=== PATIENT | female | born 1985 | race American Indian/Alaskan Native ===

== ENCOUNTER 2018-12-29 20:40 | Emergency (ER) | payer OTHER ==
[2018-12-29 20:53] VITALS: BP 122/89
[2018-12-29] MEDS ORDERED: KETOROLAC 30 MG/1 ML INJ IM ONE (21:39)
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
== END 2018-12-29 23:18 | disposition home or self-care (01) ==
LOC: ED 20:40
DX: M54.2 Cervicalgia (principal); M54.6 Pain in thoracic spine; V49.49XA Driver injured in collision with other motor vehicles in traffic accident, initial encounter; X58.XXXA Exposure to other specified factors, initial encounter; Y93.89 Activity, other specified; Y92.89 Other specified places as the place of occurrence of the external cause; Y99.8 Other external cause status
CPT/HCPCS: 96372; 99283; J1885